=== PATIENT | male | born 1950 | race Caucasian/White ===

== ENCOUNTER → 2017-04-04 | Outpatient (CLI) | payer MEDICARE | END | disposition home or self-care (01) | LOC: CVU 06:39 | PROVIDERS: ATTEND Internal Medicine Cardiovascular Disease | DX: I70.203 Unspecified atherosclerosis of native arteries of extremities, bilateral legs (principal); I71.4 Abdominal aortic aneurysm, without rupture; E78.5 Hyperlipidemia, unspecified; Z87.891 Personal history of nicotine dependence; Z85.828 Personal history of other malignant neoplasm of skin; Z95.5 Presence of coronary angioplasty implant and graft | CPT/HCPCS: 93925; 93978 ==

== ENCOUNTER → 2017-07-22 | Outpatient (CLI) | payer MEDICARE | END | disposition home or self-care (01) | LOC: CFH 12:04 | PROVIDERS: ATTEND Physical Medicine & Rehabilitation | DX: M48.061 Spinal stenosis, lumbar region without neurogenic claudication (principal); M51.36 Other intervertebral disc degeneration, lumbar region | CPT/HCPCS: 72148 ==

== ENCOUNTER → 2017-09-08 | Outpatient (CLI) | payer MEDICARE | END | disposition home or self-care (01) | LOC: RAD 12:20 | PROVIDERS: ATTEND Internal Medicine | DX: J43.9 Emphysema, unspecified (principal); R91.8 Other nonspecific abnormal finding of lung field | CPT/HCPCS: 71250 ==

== ENCOUNTER → 2017-09-22 | Outpatient (CLI) | payer MEDICARE | END | disposition home or self-care (01) | LOC: CVU 13:49 | PROVIDERS: ATTEND Internal Medicine Cardiovascular Disease | DX: I70.203 Unspecified atherosclerosis of native arteries of extremities, bilateral legs (principal); E78.5 Hyperlipidemia, unspecified; Z87.891 Personal history of nicotine dependence | CPT/HCPCS: 93925 ==

== ENCOUNTER → 2018-04-22 | Outpatient (CLI) | payer MEDICARE | END | disposition home or self-care (01) | LOC: CVU 13:05 → EDSTATUS 15:00 | PROVIDERS: ATTEND Internal Medicine Cardiovascular Disease | DX: I08.0 Rheumatic disorders of both mitral and aortic valves (principal); Z87.891 Personal history of nicotine dependence; E78.5 Hyperlipidemia, unspecified | CPT/HCPCS: 93306; 93922; 93925 ==

== ENCOUNTER → 2018-06-10 | Outpatient (CLI) | payer MEDICARE | END | disposition home or self-care (01) | LOC: CVU 14:35 | PROVIDERS: ATTEND Internal Medicine Cardiovascular Disease | DX: I72.3 Aneurysm of iliac artery (principal); I70.8 Atherosclerosis of other arteries; I71.4 Abdominal aortic aneurysm, without rupture; E78.5 Hyperlipidemia, unspecified; Z71.6 Tobacco abuse counseling | CPT/HCPCS: 93978 ==

== ENCOUNTER → 2018-06-16 | Outpatient (CLI) | payer MEDICARE | END | disposition home or self-care (01) | LOC: CFH 13:18 | PROVIDERS: ATTEND Internal Medicine | DX: M51.37 Other intervertebral disc degeneration, lumbosacral region (principal); M48.061 Spinal stenosis, lumbar region without neurogenic claudication; M99.83 Other biomechanical lesions of lumbar region; M79.605 Pain in left leg; M79.604 Pain in right leg | CPT/HCPCS: 72148 ==

== ENCOUNTER → 2019-01-15 | Outpatient (CLI) | payer MEDICARE | END | disposition home or self-care (01) | LOC: CVU 12:46 | PROVIDERS: ATTEND Internal Medicine Cardiovascular Disease | DX: I70.203 Unspecified atherosclerosis of native arteries of extremities, bilateral legs (principal) | CPT/HCPCS: 93922; 93925; 93970 ==

== ENCOUNTER 2019-06-28 08:09 | Day surgery (SDC) | payer MEDICARE ==
[~2019-06-28] VITALS: Ht 182.9 cm; Wt 85.1 kg
[2019-06-28] MEDS ORDERED: SODIUM CHLORIDE 0.9% 1,000 ML IV STA (09:06)
[2019-06-28 09:24] VITALS: BP 129/78
[2019-06-28] MEDS ORDERED: MULT1TAB13 PO (09:28)
[2019-06-28] MEDS ORDERED: ASPI-515 PO (09:28)
[2019-06-28] MEDS ORDERED: CLOP75TA PO (09:28)
[2019-06-28] MEDS ORDERED: ATOR40TA PO (09:28)
[2019-06-28] MEDS ORDERED: PLEASE ENTER HEIGHT AND WEIGHT MC SCH (09:30)
[2019-06-28] MEDS ORDERED: PLEASE ENTER ALLERGIES MC SCH (09:30)
[2019-06-28] MEDS ORDERED: SODIUM CHLORIDE 0.9% 1,000 ML IV ONE (10:00)
[2019-06-28] MEDS ORDERED: NALOXONE 1 MG/ML, 2ML ONE (10:14)
[2019-06-28] MEDS ORDERED: HEPARIN 1,000 UNITS/ML, 10ML ONE (10:14)
[2019-06-28] MEDS ORDERED: FENTANYL PF 100 MCG/2ML ONE (10:14)
[2019-06-28] MEDS ORDERED: MIDAZOLAM 1 MG/ML, 5ML ONE (10:14)
[2019-06-28] MEDS ORDERED: PROTAMINE SULFATE 10 MG/ML, 25ML ONE (10:15)
[2019-06-28] MEDS ORDERED: FLUMAZENIL 0.1 MG/1 ML, 5ML ONE (10:16)
[2019-06-28] MEDS ORDERED: LIDOCAINE 1%, 10ML ONE (10:27)
[2019-06-28] MEDS ORDERED: CEFAZOLIN PMX 1GM/50ML 100 ML ONE (10:47)
[2019-06-28] MEDS ORDERED: VISIPAQUE 270 MG/ML, 150ML BOTTLE ONE (11:37)
== END 2019-06-28 13:35 | disposition home or self-care (01) ==
LOC: OUT 08:09
PROVIDERS: ATTEND Surgery
DX: I70.213 Atherosclerosis of native arteries of extremities with intermittent claudication, bilateral legs (principal); I70.0 Atherosclerosis of aorta
CPT/HCPCS: 36200; 75625; 75716; 76937; 93005; 99156; 99157; C1751; C1769; C1894; J0690; J2250; J3010; J7030; Q9966; 75630; J1644; J2720; J2310

== ENCOUNTER 2019-06-30 13:32 | Inpatient (IN) | payer MEDICARE ==
[~2019-06-30] VITALS: Ht 182.9 cm; Wt 86.3 kg
[~2019-06-30 13:32] MED LIST: ASPI-515 PO; ATOR40TA PO; BACITRACIN 50,000 UNIT ONE; CLOP75TA PO; HEPARIN 1,000 UNITS/ML, 10ML ONE; MULT1TAB13 PO; PAPAVERINE 30 MG/ML, 2ML ONE; PROTAMINE SULFATE 10 MG/ML, 5ML ONE; THROMBIN SPRAY 20,000 UNIT SPRAY TP ONE
[2019-06-30] MEDS ORDERED: SODIUM CHLORIDE 0.9% 1,000 ML IV SCH (14:03)
[2019-06-30 14:30] VITALS: BP 115/77
[2019-06-30] MEDS ORDERED: CEFAZOLIN 2,000 MG in SODIUM CHLORIDE 0.9% 50 ML IV ONE (14:30)
[2019-06-30] MEDS ORDERED: FENTANYL PF 250 MCG/5ML ONE (14:55)
[2019-06-30] MEDS ORDERED: MIDAZOLAM 1 MG/ML, 2ML ONE (14:55)
[2019-06-30] MEDS ORDERED: CEFAZOLIN 1,000 MG ONE ×2 (14:56)
[2019-06-30] MEDS ORDERED: DEXAMETHASONE 4 MG/ML, 1ML ONE ×2 (14:56)
[2019-06-30] MEDS ORDERED: PROPOFOL 10 MG/ML, 20ML ONE (14:56)
[2019-06-30] MEDS ORDERED: SUCCINYLCHOLINE 20 MG/ML, 10ML ONE (14:56)
[2019-06-30] MEDS ORDERED: ROCURONIUM 10MG/ML,5ML ONE (14:56)
[2019-06-30] MEDS ORDERED: OXYcodone 5 MG/5 ML ORAL.SOL UDC PO PRN (16:00)
[2019-06-30] MEDS ORDERED: ACETAMINOPHEN 325 MG TABLET PO PRN ×2 (16:00→23:30)
[2019-06-30] MEDS ORDERED: ONDANSETRON 2MG/ML, 2ML IV PRN ×2 (16:00→23:30)
[2019-06-30] MEDS ORDERED: LABETALOL 5MG/ML, 20ML IV PRN (16:00)
[2019-06-30] MEDS ORDERED: DIPHENHYDRAMINE 50 MG/ML, 1ML IVPush PRN (16:00)
[2019-06-30] MEDS ORDERED: MEPERIDINE/PF 25MG/ML,1ML IVPush PRN (16:00)
[2019-06-30] MEDS ORDERED: METOPROLOL 1 MG/ML, 5ML IV PRN (16:00)
[2019-06-30] MEDS ORDERED: HYDROmorphone 2 MG/ML, 1ML IVPush PRN (16:00)
[2019-06-30] MEDS ORDERED: hydrALAzine 20 MG/ML, 1ML IV PRN (16:00)
[2019-06-30] MEDS ORDERED: LORazepam 2 MG/ML, 1ML IVPush PRN (16:00)
[2019-06-30] MEDS ORDERED: FENTANYL PF 100 MCG/2ML IV PRN (16:00)
[2019-06-30] MEDS ORDERED: METOPROLOL 1 MG/ML, 5ML ONE (19:14)
[2019-06-30] MEDS ORDERED: DIGOXIN 0.25 MG/ML, 2ML ONE ×2 (19:22→20:06)
[2019-06-30] MEDS ORDERED: DIGOXIN 0.25 MG/ML, 2ML IVPush ONE ×3 (19:30→20:30)
[2019-06-30] MEDS ORDERED: OXYcodone 5 MG/5 ML ORAL.SOL UDC ONE (19:37)
[2019-06-30] MEDS ORDERED: FENTANYL PF 100 MCG/2ML ONE (19:37)
[2019-06-30 20:53] LABS: TROPONIN I < 0.015 ng/mL (0.000-0.045)
[2019-06-30] MEDS ORDERED: DIGOXIN 0.25 MG/ML, 2ML IVPush SCH (22:00)
[2019-06-30 23:15] VITALS: BP 105/70
[2019-06-30] MEDS ORDERED: HYDROcodone/APAP 5/325 TABLET PO PRN (23:30)
[2019-06-30] MEDS ORDERED: morphine SULFATE 10 MG/ML, 1ML IV PRN (23:30)
[2019-06-30] MEDS: LACTATED RINGERS 1,000 ML IV SCH (23:58)
[2019-06-30] MEDS: CEFAZOLIN PMX 2GM/50ML 50 ML IVPB SCH (23:58)
[2019-07-01] MEDS ORDERED: DIGOXIN 0.25 MG/ML, 2ML IVPush SCH
[2019-07-01 00:48] VITALS: BP 112/71
[2019-07-01 02:39] LABS: BASOPHILS # (AUTO) 0.04 x10^3/uL (0-0.1); BASOPHILS % (AUTO) 0 % (0-1); EOSINOPHILS # (AUTO) 0.17 x10^3/uL (0-0.4); EOSINOPHILS % (AUTO) 1 % (1-7); LYMPHOCYTES # (AUTO) 1.17 x10^3/uL (1-3.4); LYMPHOCYTES % (AUTO) 7 % (22-44); MD NO; MEAN CORPUSCULAR HEMOGLOBIN 31.3 pg (27.5-34.5); MEAN CORPUSCULAR VOLUME 94.7 fL (81-97); MEAN PLATELET VOLUME 7.7 fL (7.4-10.4); MONOCYTES # (AUTO) 0.46 x10^3/uL (0.2-0.8); MONOCYTES % (AUTO) 3 % (2-9); NEUTROPHILS # (AUTO) 14.02 x10^3/uL (1.8-6.8); NEUTROPHILS % (AUTO) 88 % (42-75); PLATELET COUNT 219 x10^3/uL (130-400); RED CELL DISTRIBUTION WIDTH 13.3 % (9.4-14.8)
[2019-07-01 02:49] LABS: ALBUMIN 2.6 g/dL (3.4-5.0); ANION GAP 3 mmol/L (5-15); CALCIUM 8.2 mg/dL (8.5-10.1); CHLORIDE 111 mmol/L (98-107)
[2019-07-01 02:53] LABS: ALANINE AMINOTRANSFERASE 28 U/L (12-78); ALKALINE PHOSPHATASE 37 U/L (45-117); BILIRUBIN,TOTAL 0.7 mg/dL (0.2-1.0); CREATININE 0.92 mg/dL (0.7-1.3); TOTAL PROTEIN 6.3 g/dL (6.4-8.2)
[2019-07-01 02:54] LABS: TROPONIN I < 0.015 ng/mL (0.000-0.045)
[2019-07-01 05:50] VITALS: BP 105/67
[2019-07-01] MEDS ORDERED: ENOXAPARIN 40 MG/0.4 ML SQ SCH (06:00)
[2019-07-01 07:21] VITALS: BP 109/68
[2019-07-01] MEDS: CEFAZOLIN PMX 2GM/50ML 50 ML IVPB SCH (07:35)
[2019-07-01 09:00] LABS: TROPONIN I < 0.015 ng/mL (0.000-0.045)
[2019-07-01] MEDS ORDERED: CLOPIDOGREL 75 MG TABLET PO SCH (09:00)
[2019-07-01] MEDS ORDERED: ASPIRIN 81 MG TABLET CHEW PO SCH (09:00)
[2019-07-01] MEDS: LACTATED RINGERS 1,000 ML IV SCH (09:30)
[2019-07-01] MEDS ORDERED: HYDR-3240 PO (14:03)
[2019-07-01] MEDS ORDERED: ATORVASTATIN 40 MG TABLET PO SCH (21:00)
== END 2019-07-01 14:44 | disposition home or self-care (01) | DRG 271 ==
LOC: OUT 13:32 → EDSTATUS 15:00 → 5SO 22:04 → DCLOUNGE 07-01 14:21
PROVIDERS: ADMIT Surgery; ATTEND Surgery
PROC: 047K3ZZ Dilation of Right Femoral Artery, Percutaneous Approach (ICD-10-PCS; 2019-06-30)
PROC: 04CK0ZZ Extirpation of Matter from Right Femoral Artery, Open Approach (ICD-10-PCS; 2019-06-30)
PROC: 04CH0ZZ Extirpation of Matter from Right External Iliac Artery, Open Approach (ICD-10-PCS; 2019-06-30)
PROC: 047M3Z1 Dilation of Right Popliteal Artery using Drug-Coated Balloon, Percutaneous Approach (ICD-10-PCS; 2019-06-30)
PROC: B41D1ZZ Fluoroscopy of Aorta and Bilateral Lower Extremity Arteries using Low Osmolar Contrast (ICD-10-PCS; 2019-06-30)
PROC: 03HY32Z Insertion of Monitoring Device into Upper Artery, Percutaneous Approach (ICD-10-PCS; 2019-06-30)
PROC: 04UK0KZ Supplement Right Femoral Artery with Nonautologous Tissue Substitute, Open Approach (ICD-10-PCS; 2019-06-30)
PROC: 047H3DZ Dilation of Right External Iliac Artery with Intraluminal Device, Percutaneous Approach (ICD-10-PCS; principal; 2019-06-30 15:00)
DX: I70.211 Atherosclerosis of native arteries of extremities with intermittent claudication, right leg (principal); I97.191 Other postprocedural cardiac functional disturbances following other surgery; Y83.8 Other surgical procedures as the cause of abnormal reaction of the patient, or of later complication, without mention of misadventure at the time of the procedure; Y92.239 Unspecified place in hospital as the place of occurrence of the external cause; I48.91 Unspecified atrial fibrillation; Z72.0 Tobacco use; E78.5 Hyperlipidemia, unspecified; E78.00 Pure hypercholesterolemia, unspecified; I25.10 Atherosclerotic heart disease of native coronary artery without angina pectoris; J44.9 Chronic obstructive pulmonary disease, unspecified; Z82.49 Family history of ischemic heart disease and other diseases of the circulatory system
CPT/HCPCS: 36415; 75710; 80053; 84484; 85025; 93005; 93306; G0378; J0690; J1100; J1644; J1650; J2250; J2704; J2720; J3010; C1751; C1760; C1768; C1769; C1876; C1894; C2623; J0330; J1160; J2440; J7030; J7120

== ENCOUNTER → 2020-01-06 | Outpatient (CLI) | payer MEDICARE ==
[~2020-01-06] MED LIST changes: -BACITRACIN 50,000 UNIT ONE; -HEPARIN 1,000 UNITS/ML, 10ML ONE; +HYDR-3240 PO; -PAPAVERINE 30 MG/ML, 2ML ONE; -PROTAMINE SULFATE 10 MG/ML, 5ML ONE; -THROMBIN SPRAY 20,000 UNIT SPRAY TP ONE
== END | disposition home or self-care (01) ==
LOC: CVU 09:37
PROVIDERS: ATTEND Physician Assistant Medical
DX: I35.0 Nonrheumatic aortic (valve) stenosis (principal); I72.3 Aneurysm of iliac artery; E78.5 Hyperlipidemia, unspecified; I25.10 Atherosclerotic heart disease of native coronary artery without angina pectoris; I71.4 Abdominal aortic aneurysm, without rupture
CPT/HCPCS: 93306; 93978

== ENCOUNTER 2021-04-05 07:33 | Outpatient (CLI) | payer MEDICARE ==
[~2021-04-05 07:33] MED LIST changes: -ASPI-515 PO; +ASPI-963 PO; +HYDR-2214 PO; -HYDR-3240 PO; +REGADENOSON 0.4 MG/5 ML SYRINGE ONE
== END 2021-04-05 23:59 | disposition home or self-care (01) ==
LOC: CFH 07:33
PROVIDERS: ATTEND Student in an Organized Health Care Education/Training Program
DX: Z01.810 Encounter for preprocedural cardiovascular examination (principal); R07.89 Other chest pain; I21.19 ST elevation (STEMI) myocardial infarction involving other coronary artery of inferior wall
CPT/HCPCS: 78452; 93017; A9502; J2785

== ENCOUNTER 2021-04-18 06:37 | Outpatient (CLI) | payer MEDICARE ==
[~2021-04-18 06:37] MED LIST changes: -REGADENOSON 0.4 MG/5 ML SYRINGE ONE
== END 2021-04-18 23:59 | disposition home or self-care (01) ==
LOC: CVU 06:37
PROVIDERS: ATTEND Student in an Organized Health Care Education/Training Program
DX: I06.1 Rheumatic aortic insufficiency (principal); I72.3 Aneurysm of iliac artery; I71.9 Aortic aneurysm of unspecified site, without rupture; I25.10 Atherosclerotic heart disease of native coronary artery without angina pectoris; I11.9 Hypertensive heart disease without heart failure; Z72.0 Tobacco use
CPT/HCPCS: 93306; 93356; 93978

== ENCOUNTER 2021-04-20 08:50 | Outpatient (CLI) | payer MEDICARE | END 2021-04-20 23:59 | disposition home or self-care (01) | LOC: CVU 08:50 | PROVIDERS: ATTEND Surgery | DX: I70.203 Unspecified atherosclerosis of native arteries of extremities, bilateral legs (principal); I71.4 Abdominal aortic aneurysm, without rupture; I25.10 Atherosclerotic heart disease of native coronary artery without angina pectoris | CPT/HCPCS: 93922; 93925 ==